=== PATIENT | female | born 1975 | race Caucasian/White ===

== ENCOUNTER 2021-05-19 19:02 | Emergency (ER) | payer OTHER ==
[~2021-05-19] VITALS: Ht 160 cm; Wt 63.7 kg
[2021-05-19 19:02] VITALS: BP 149/88
--- NOTE | 2021-05-19 19:02 | NUR ---
PT ZAIRE ABREUS. TAKEN TO BED 4
--- NOTE | 2021-05-19 19:20 | NUR ---
EMT AT BEDSIDE DOING EKG.
--- NOTE | 2021-05-19 19:36 | NUR ---
RAD AT BEDSIDE
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
[2021-05-19 19:56] VITALS: BP 149/88
--- NOTE | 2021-05-19 19:56 | NUR ---
Patient discharged with v/s stable. Written and verbal after care instructions given and explained. Patient verbalized understanding. Ambulatory with steady gait. ID band removed. All questions addressed prior to discharge. Advised to follow up with PMD.
== END 2021-05-19 19:56 | disposition home or self-care (01) ==
LOC: MED 19:02
DX: R07.89 Other chest pain (principal); R11.0 Nausea; V98.8XXA Other specified transport accidents, initial encounter; Y93.89 Activity, other specified; Y92.89 Other specified places as the place of occurrence of the external cause; Y99.8 Other external cause status
CPT/HCPCS: 71045; 81025; 93005; 99283